=== PATIENT | female | born 1940 | race Caucasian/White ===

== ENCOUNTER 2022-04-12 15:40 | Inpatient (IN) | payer MEDICARE ==
[2022-04-12 16:13] LABS: #Basophils 0.1 thou/uL (0.0-0.2); #Eosinphils 0.1 thou/uL (0.0-0.7); #Lymphocytes 2.1 thou/uL (1.20-3.40); #Monocytes 1.1 thou/uL (0.11-0.59); %Basophils 0.6 % (0.0-1.0); %Eosinophils 0.7 % (0.0-10.0); %Lymphocytes 22.6 % (21.0-51.0); %Monocytes 11.9 % (0.0-10.0); %Neutrophils 64.2 % (42.0-75.0); Hemoglobin 14.4 g/dL (12.0-16.0); Mean Corpuscular HGB CONC 32.8 g/dL (32.0-36.0); Mean Corpuscular Hemoglobin 30.9 pg (27.0-31.0); Mean Corpuscular Volume 94.2 fL (78.0-98.0); Mean Platelet Volume 6.6 fL (7.4-10.4); Platelet Count 323 thou/uL (130-400); RBC Distribution Width 10.6 % (11.5-14.5); Red Blood Cell (RBC) Count 4.67 mill/uL (4.20-5.40); White Blood Cell (WBC) Count 9.3 thou/uL (4.8-10.8)
[2022-04-12 16:41] LABS: ALT (SGPT) 11 U/L (8-55); AST (SGOT) 15 U/L (5-34); Albumin 4.3 g/dL (3.4-4.8); Alkaline Phosphatase 78 U/L (40-110); Anion Gap 15 mmol/L (10-20); BUN (Urea Nitrogen) 17 mg/dL (9.8-20.1); Bilirubin, Total 0.3 mg/dL (0.2-1.2); Calc. Creatinine Clearance 0 mL/min (70-130); Calcium 9.7 mg/dL (7.8-10.44); Carbon Dioxide 25 mmol/L (23-31); Chloride 101 mmol/L (98-107); Estimated GFR 79; Globulin 2.9 g/dL (2.4-3.5); Glucose 154 mg/dL (83-110); Lipase 50 U/L (8-78); Potassium 3.4 mmol/L (3.5-5.1); Protein, Total 7.2 g/dL (5.8-8.1); Sodium 138 mmol/L (136-145)
[2022-04-12] MEDS ORDERED: Aspirin Chewable 81 MG TAB ONE (16:48)
[2022-04-12 19:31] LABS: Bilirubin Negative (Negative); Blood, Urine Negative (Negative); Clarity Clear (Clear); Glucose, Urine (Dipstick) Normal (Negative); Ketone, Urine Negative (Negative); Leukocyte Negative Leu/uL (Negative); Nitrite Negative (Negative); Protein, Urine (Dipstick) Negative (Neg-Trace); Specific Gravity, Urine 1.012 (1.002-1.036); Urobilinogen Normal mg/dL (Less than 2); pH, Urine 6.5 (5.0-9.0)
[2022-04-12] MEDS ORDERED: Bisacodyl 10 MG SUPP PR PRN (20:17)
[2022-04-12] MEDS ORDERED: Ondansetron PF 4 MG/2 ML Vial IVP PRN (20:17)
[2022-04-12] MEDS ORDERED: hydrALAZINE 20 MG/ML VIAL SLOW IVP PRN (20:17)
[2022-04-12] MEDS ORDERED: Loperamide HCl 2 MG CAP PO PRN (20:17)
[2022-04-12] MEDS ORDERED: Morphine 2 MG/ML VIAL SLOW IVP PRN (20:21)
[2022-04-12] MEDS ORDERED: Potassium Chloride 20 MEQ TAB PO SCH (20:30)
[2022-04-12] MEDS: Lactated Ringer's 1,000 ML IV SCH (23:12)
[2022-04-12] MEDS: Famotidine 20 MG TAB PO SCH (23:12)
[2022-04-12] MEDS: Atorvastatin Calcium 40 MG TAB PO SCH (23:12)
[2022-04-12] MEDS: Zolpidem Tartrate 5 MG TAB PO PRN (23:12)
[2022-04-12 23:40] VITALS: BMI 17.5
[2022-04-13 05:10] LABS: #Eosinphils 0.1 thou/uL (0.0-0.7); #Lymphocytes 1.8 thou/uL (1.20-3.40); #Monocytes 1.2 thou/uL (0.11-0.59); #Neutrophils 5.8 thou/uL (1.40-6.50); %Basophils 0.1 % (0.0-1.0); %Eosinophils 0.8 % (0.0-10.0); %Lymphocytes 19.9 % (21.0-51.0); %Monocytes 13.4 % (0.0-10.0); %Neutrophils 65.9 % (42.0-75.0); Hemoglobin 12.9 g/dL (12.0-16.0); Mean Corpuscular HGB CONC 33.7 g/dL (32.0-36.0); Mean Corpuscular Hemoglobin 31.6 pg (27.0-31.0); Mean Corpuscular Volume 93.8 fL (78.0-98.0); Mean Platelet Volume 6.4 fL (7.4-10.4); Platelet Count 300 thou/uL (130-400); RBC Distribution Width 10.7 % (11.5-14.5); Red Blood Cell (RBC) Count 4.08 mill/uL (4.20-5.40); White Blood Cell (WBC) Count 8.8 thou/uL (4.8-10.8)
[2022-04-13 05:32] LABS: ALT (SGPT) 9 U/L (8-55); AST (SGOT) 12 U/L (5-34); Albumin 3.7 g/dL (3.4-4.8); Alkaline Phosphatase 67 U/L (40-110); Anion Gap 13 mmol/L (10-20); BUN (Urea Nitrogen) 12 mg/dL (9.8-20.1); Bilirubin, Total 0.8 mg/dL (0.2-1.2); Calc. Creatinine Clearance 54 mL/min (70-130); Carbon Dioxide 23 mmol/L (23-31); Cardiac Risk 2.6 (Less than 4.5); Chloride 106 mmol/L (98-107); Cholesterol 144 mg/dl (< 200 Desired); Estimated GFR 87; Globulin 2.3 g/dL (2.4-3.5); Glucose 95 mg/dL (83-110); HDL Cholesterol 55 mg/dL (>60 Neg Risk); LDL Cholesterol, Calculated 78 mg/dL; Potassium 4.4 mmol/L (3.5-5.1); Sodium 138 mmol/L (136-145); Triglycerides 53 mg/dL (Less than 150)
[2022-04-13] MEDS: Aspirin 81 mg Enteric Coated Tablet PO SCH (10:31)
[2022-04-13] MEDS: Enoxaparin Sodium 40 MG/0.4 ML SYRINGE SC SCH (10:31)
[2022-04-13] MEDS: Clopidogrel Bisulfate 75 MG TAB PO SCH (10:32)
[2022-04-13] MEDS: HYDROcodone/Acetaminophen 5/325 mg Tablet PO PRN (10:32)
[2022-04-13 15:21] LABS: ANA Symphony (Qualitative) Negative (Negative); ANA Symphony (Quantitative) 0.2 Ratio (< 0.7 Negative); dsDNA IgG Antibody 0.6 IU/mL (<10 Negative)
[2022-04-13] MEDS: Acetaminophen 325 MG TAB PO PRN (15:27)
[2022-04-13] MEDS: Lactated Ringer's 1,000 ML IV SCH ×3 (16:06→21:46)
[2022-04-13] MEDS ORDERED: Bisacodyl 5 MG TAB PO PRN (20:22)
[2022-04-13] MEDS: Atorvastatin Calcium 40 MG TAB PO SCH (21:44)
[2022-04-13] MEDS: Zolpidem Tartrate 5 MG TAB PO PRN (21:44)
[2022-04-13] MEDS: Famotidine 20 MG TAB PO SCH (21:45)
[2022-04-13] MEDS: Senokot S 8.6-50 MG TAB PO PRN (21:45)
[2022-04-14] MEDS: HYDROcodone/Acetaminophen 5/325 mg Tablet PO PRN ×2 (09:39→15:28)
[2022-04-14] MEDS: Enoxaparin Sodium 40 MG/0.4 ML SYRINGE SC SCH (09:41)
[2022-04-14] MEDS: Aspirin 81 mg Enteric Coated Tablet PO SCH (09:42)
[2022-04-14] MEDS: Clopidogrel Bisulfate 75 MG TAB PO SCH (09:42)
[2022-04-14] MEDS: Lactated Ringer's 1,000 ML IV SCH ×2 (17:48→21:28)
[2022-04-14] MEDS: Atorvastatin Calcium 40 MG TAB PO SCH (21:23)
[2022-04-14] MEDS: Famotidine 20 MG TAB PO SCH (21:23)
[2022-04-14] MEDS: Zolpidem Tartrate 5 MG TAB PO PRN (21:23)
[2022-04-15] MEDS: HYDROcodone/Acetaminophen 5/325 mg Tablet PO PRN ×2 (08:29→13:46)
[2022-04-15] MEDS: Enoxaparin Sodium 40 MG/0.4 ML SYRINGE SC SCH (08:30)
[2022-04-15] MEDS: Aspirin 81 mg Enteric Coated Tablet PO SCH (08:30)
[2022-04-15] MEDS: Senokot S 8.6-50 MG TAB PO PRN (13:46)
[2022-04-15] MEDS: Lactated Ringer's 1,000 ML IV SCH (13:48)
[2022-04-15] MEDS: Famotidine 20 MG TAB PO SCH (21:08)
[2022-04-15] MEDS: Acetaminophen 325 MG TAB PO PRN (21:08)
[2022-04-15] MEDS: Atorvastatin Calcium 40 MG TAB PO SCH (21:08)
[2022-04-15] MEDS: Zolpidem Tartrate 5 MG TAB PO PRN (21:08)
[2022-04-16] MEDS: Lactated Ringer's 1,000 ML IV SCH (08:51)
[2022-04-16] MEDS: Aspirin 81 mg Enteric Coated Tablet PO SCH (08:51)
[2022-04-16] MEDS: Enoxaparin Sodium 40 MG/0.4 ML SYRINGE SC SCH (08:51)
[2022-04-16] MEDS: Acetaminophen 325 MG TAB PO PRN (11:37)
[2022-04-16 12:35] VITALS: BP 141/78; TEMP 98.2
== END 2022-04-16 13:51 | disposition home health service (06) | DRG 41 ==
LOC: ERS 15:40 → ERHOLD 17:50 → NEURO 22:57
PROVIDERS: ADMIT Internal Medicine; ATTEND Internal Medicine
PROC: 0JH632Z Insertion of Monitoring Device into Chest Subcutaneous Tissue and Fascia, Percutaneous Approach (ICD-10-PCS; principal; 2022-04-16)
DX: I63.50 Cerebral infarction due to unspecified occlusion or stenosis of unspecified cerebral artery (principal); G81.91 Hemiplegia, unspecified affecting right dominant side; Z68.1 Body mass index [BMI] 19.9 or less, adult; I10 Essential (primary) hypertension; R29.810 Facial weakness; R29.704 NIHSS score 4; Z90.710 Acquired absence of both cervix and uterus; Z20.822 Contact with and (suspected) exposure to COVID-19; Z79.899 Other long term (current) drug therapy; M19.90 Unspecified osteoarthritis, unspecified site; Z96.652 Presence of left artificial knee joint; R63.6 Underweight
CPT/HCPCS: 33285; 36415; 36416; 70450; 70551; 71045; 80053; 80061; 81003; 83090; 83690; 83880; 84443; 84484; 85025; 86038; 86225; 93005; 93306; 93880; C1764; J1650; J7120; U0003; U0005

== ENCOUNTER 2022-05-27 13:54 | Observation (INO) | payer MEDICARE ==
[2022-05-27 14:23] LABS: Actual Bicarbonate (HCO3v) 21 mEq/L (22-28); Base Excess -0.6 mEq/L (-2.0 to +3.0); Calcium, Ionized (venous) 0.98 mmol/L (1.16-1.32); Chloride (VBG) 93 mmol/L (98-106); Hemoglobin (Hb) 15.3 g/dL (11.7-16.1); Potassium (VBG) 3.68 mmol/L (3.70-5.30); Sodium 124.6 mmol/L (133-146); pH (venous) 7.52 (7.32-7.43)
[2022-05-27 14:29] LABS: #Eosinphils 0.2 thou/uL (0.0-0.7); #Lymphocytes 2.9 thou/uL (1.20-3.40); #Monocytes 1.4 thou/uL (0.11-0.59); #Neutrophils 8.4 thou/uL (1.40-6.50); %Basophils 0.1 % (0.0-1.0); %Eosinophils 1.9 % (0.0-10.0); %Lymphocytes 22.7 % (21.0-51.0); %Monocytes 10.5 % (0.0-10.0); %Neutrophils 64.7 % (42.0-75.0); Hemoglobin 14.6 g/dL (12.0-16.0); Mean Corpuscular HGB CONC 33.4 g/dL (32.0-36.0); Mean Corpuscular Hemoglobin 29.7 pg (27.0-31.0); Mean Corpuscular Volume 88.9 fL (78.0-98.0); Mean Platelet Volume 6.1 fL (7.4-10.4); Platelet Count 482 thou/uL (130-400); RBC Distribution Width 10.9 % (11.5-14.5); Red Blood Cell (RBC) Count 4.93 mill/uL (4.20-5.40)
[2022-05-27 14:47] LABS: ALT (SGPT) 50 U/L (8-55); AST (SGOT) 50 U/L (5-34); Albumin 4.2 g/dL (3.4-4.8); Alkaline Phosphatase 133 U/L (40-110); Anion Gap 15 mmol/L (10-20); BUN (Urea Nitrogen) 12 mg/dL (9.8-20.1); Bilirubin, Total 0.4 mg/dL (0.2-1.2); Calc. Creatinine Clearance 0 mL/min (70-130); Calcium 9.8 mg/dL (7.8-10.44); Carbon Dioxide 24 mmol/L (23-31); Chloride 91 mmol/L (98-107); Estimated GFR 74; Globulin 3.3 g/dL (2.4-3.5); Glucose 170 mg/dL (83-110); Potassium 3.2 mmol/L (3.5-5.1); Protein, Total 7.5 g/dL (5.8-8.1); Sodium 127 mmol/L (136-145)
[2022-05-27 15:49] LABS: Bacteria/HPF 2+ HPF (None Seen); Bilirubin Negative (Negative); Blood, Urine Negative (Negative); Clarity Clear (Clear); Glucose, Urine (Dipstick) Normal (Negative); Ketone, Urine Negative (Negative); Leukocyte Negative Leu/uL (Negative); Nitrite Negative (Negative); Protein, Urine (Dipstick) Negative (Neg-Trace); RBC/HPF 0-3 HPF (0-3); Specific Gravity, Urine 1.006 (1.002-1.036); Squamous Epithelial 0-3 HPF (0-3); Urobilinogen Normal mg/dL (Less than 2); WBC/HPF 0-3 HPF (0-3); pH, Urine 7.5 (5.0-9.0)
[2022-05-27] MEDS ORDERED: Ondansetron PF 4 MG/2 ML Vial IVP PRN (17:26)
[2022-05-27 17:37] LABS: SARS-CoV-2 NAA Rapid Test DETECTED (NotDetected)
[2022-05-27 17:52] LABS: Lactic Acid 0.7 mmol/L (0.5-2.2)
[2022-05-27] MEDS ORDERED: Potassium Chloride 20 MEQ TAB PO SCH (18:00)
[2022-05-27 18:24] VITALS: BMI 21.7
[2022-05-27] MEDS ORDERED: Thiamine 100 MG TAB PO SCH (18:30)
[2022-05-27] MEDS ORDERED: Zinc Sulfate 220 MG CAP PO SCH (19:00)
[2022-05-27] MEDS ORDERED: Ascorbic Acid 500 mg Chewable Tablet PO SCH (19:00)
[2022-05-27] MEDS ORDERED: Cholecalciferol 1,000 UNITS (25 MCG) TAB PO SCH (19:00)
[2022-05-27 19:01] LABS: Magnesium 1.8 mg/dL (1.6-2.6)
[2022-05-27] MEDS ORDERED: Atorvastatin Calcium 40 MG TAB PO SCH (21:00)
[2022-05-27] MEDS: Apixaban 5 MG TAB PO SCH (21:57)
[2022-05-27] MEDS: Potassium Chloride 20 MEQ in Premix Bag 1 BAG IVPB SCH (21:57)
[2022-05-28] MEDS: Potassium Chloride 20 MEQ in Premix Bag 1 BAG IVPB SCH (00:03)
[2022-05-28] MEDS ORDERED: Cholecalciferol 1,000 UNITS (25 MCG) TAB PO SCH (09:00)
[2022-05-28] MEDS ORDERED: Thiamine 100 MG TAB PO SCH (09:00)
[2022-05-28] MEDS ORDERED: Zinc Sulfate 220 MG CAP PO SCH (09:00)
[2022-05-28] MEDS ORDERED: Ascorbic Acid 500 mg Chewable Tablet PO SCH (09:00)
[2022-05-28 09:47] LABS: #Eosinphils 0.1 thou/uL (0.0-0.7); #Lymphocytes 1.7 thou/uL (1.20-3.40); #Monocytes 0.9 thou/uL (0.11-0.59); #Neutrophils 6.4 thou/uL (1.40-6.50); %Eosinophils 0.9 % (0.0-10.0); %Lymphocytes 18.4 % (21.0-51.0); %Monocytes 9.7 % (0.0-10.0); Hemoglobin 13.3 g/dL (12.0-16.0); Mean Corpuscular HGB CONC 31.8 g/dL (32.0-36.0); Mean Corpuscular Volume 91.2 fL (78.0-98.0); Mean Platelet Volume 5.9 fL (7.4-10.4); Platelet Count 466 thou/uL (130-400); RBC Distribution Width 11.1 % (11.5-14.5)
[2022-05-28 09:58] LABS: Anion Gap 16 mmol/L (10-20); BUN (Urea Nitrogen) 7 mg/dL (9.8-20.1); Calc. Creatinine Clearance 49 mL/min (70-130); Calcium 9.3 mg/dL (7.8-10.44); Carbon Dioxide 18 mmol/L (23-31); Chloride 104 mmol/L (98-107); Estimated GFR 77; Glucose 206 mg/dL (83-110); Potassium 4.2 mmol/L (3.5-5.1); Sodium 134 mmol/L (136-145)
[2022-05-28] MEDS: Apixaban 5 MG TAB PO SCH (10:25)
[2022-05-28 12:39] VITALS: TEMP 96.9
[2022-05-28 12:54] VITALS: BP 142/79
[2022-05-30] MEDS ORDERED: FLU VACC QS2022-23(65YR UP)/PF 240 MCG/0.7 ML SYRINGE IM ONE (09:00)
== END 2022-05-28 17:05 | disposition home or self-care (01) ==
LOC: ERS 13:54 → 2NO 16:43
PROVIDERS: ADMIT Internal Medicine; ATTEND Internal Medicine
DX: G93.40 Encephalopathy, unspecified (principal); U07.1 COVID-19; E87.6 Hypokalemia; I69.354 Hemiplegia and hemiparesis following cerebral infarction affecting left non-dominant side; I10 Essential (primary) hypertension; I48.91 Unspecified atrial fibrillation; D72.829 Elevated white blood cell count, unspecified; Z79.01 Long term (current) use of anticoagulants; Z79.899 Other long term (current) drug therapy; Z95.818 Presence of other cardiac implants and grafts
CPT/HCPCS: 70450; 71045; 80048; 80053; 81003; 82805; 83605; 83735; 84484; 85025 ×2; 93005; 96365; 96366 ×2; 97116; 97535; 99285; G0378 ×3; U0002; 36415; J3480